=== PATIENT | female | born 1955 | race Caucasian/White ===

== ENCOUNTER → 2016-09-04 | Outpatient (CLI) | payer OTHER ==
[~2016-09-04] MED LIST: EFFEXOR XR PO; LEVAQUIN PO; LORTAB 7.5-5001 TAB PO; PREMARIN PO; PRILOSEC PO; PROZAC PO
--- NOTE | ~2016-09-04 | MY11 ---
[facility] A Service of [facility] RADIOLOGY TEXT RESULTS PATIENT: ADITYA DOMINGUEZ LOCATION: [facility] : 59 UNIT #: [id number] AGE: [address]: JENNIFER LAMBERT MD SEX: F ORDER DR: [id number] [facility] [address] [place], [place] [address] [id number] O MR#: [id number] Acc #: [id number] NAME: ADITYA DOMINGUEZ : 1955 SEX: F STUDY DATE/TIME: 09/04/2016 7:42 UNIT: [facility] ROOM: STUDY DESCRIPTION: MY Mammogram Screening Dig Eyad Attending Physician: Jennifer Lambert M.D. Referring Physician: Jennifer Lambert M.D. Ordering Physician: Jennifer Lambert M.D. Primary Care Physician: Jennifer Lambert M.D. MEDICAL IMAGING REPORT This report is preliminary unless electronic signature is present EXAM Digital screening mammogram, 09/04/2016. HISTORY 60-year-old woman; no risk elevation. Prior right breast biopsy. Annual screening. COMPARISON STUDIES Mammograms date to 05/18/2007, with most recent screening comparison 07/30/2015. FINDINGS Digital imaging of each breast was completed utilizing a two-view examination of each breast in craniocaudal and mediolateral-oblique projections. Review and interpretation of digital mammograms include a second review in conjunction with FDA-approved CAD device. There is a normal parenchymal presentation bilaterally consistent with the patient's age. There are no breast masses imaged and no parenchymal asymmetry is visualized. There are no suspicious microcalcifications and I see no focal architectural disturbance. NOTE Breast parenchyma is fatty replaced. IMPRESSION Negative screening digital mammogram. One-year followup recommended. Patients over the age of 40 are entered into a reminder system with target due date for the next mammogram. A result letter will also be sent to the patient. BIRADS: 1 Negative [facility] A Service of [facility] RADIOLOGY TEXT RESULTS PATIENT: ADITYA DOMINGUEZ LOCATION: [facility] : 59 UNIT #: [id number] AGE: [address]: JENNIFER LAMBERT MD SEX: F ORDER DR: Dictated by... Vidal Mcnulty M.D. THIS IS AN ELECTRONICALLY VERIFIED REPORT Vidal Mcnulty M.D. at 09/04/2016 2:21 PM SRIDHAR/chaparrita TD: 09/04/2016 12:59 JOB #: [id number] MEDICAL IMAGING REPORT COPY
== END | disposition home or self-care (01) ==
LOC: CWCC 07:15
DX: Z12.31 Encounter for screening mammogram for malignant neoplasm of breast (principal)
CPT/HCPCS: G0202